=== PATIENT | male | born 1995 | race American Indian/Alaskan Native ===

== ENCOUNTER 2021-01-05 12:30 | Emergency (ER) | payer SELFPAY ==
--- NOTE | 2021-01-05 12:48 | Event Note ---
ED Screening Note ED Screening Note: R ANKLE PAIN This initial assessment/diagnostic orders/clinical plan/treatment(s) is/are subject to change based on patients health status, clinical progression and re- assessment by fellow clinical providers in the ED. Further treatment and workup at subsequent clinical providers discretion. Patient/guardian urged not to elope from the ED as their condition may be serious if not clinically assessed and managed. Initial orders include: XR
[2021-01-05 12:52] VITALS: BP 136/73
--- NOTE | 2021-01-05 13:12 | Emergency Department Report ---
ED Lower Extremity HPI - General Chief Complaint: Extremity Injury, Lower Stated Complaint: RT ANKLE Time Seen by Provider: 01/05/21 12:42 Source: patient Mode of arrival: Ambulatory Limitations: No Limitations - History of Present Illness Initial Comments: 25 yo AA male comes to ER with right ankle pain. Does not recall any trauma. Swelling noted. 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 Complaint: ankle injury -: Sudden, hour(s) Injury: Ankle: Right Type of Injury: unknown Place: home Severity: moderate Improves With: nothing Worsens With: movement - Related Data Allergies Allergy/AdvReac Type Severity Reaction Status Date / Time No Known Allergies Allergy Unverified 01/05/21 12:48 ED Review of Systems ROS: Stated complaint: RT ANKLE Other details as noted in HPI Comment: All other systems reviewed and negative ED Past Medical Hx - Past Medical History Previous Medical History?: No - Surgical History Past Surgical History?: No - Family History Family history: no significant - Social History Smoking Status: Never Smoker Substance Use Type: Marijuana ED Physical Exam - General Limitations: No Limitations General appearance: alert, in no apparent distress - Head Head exam: Present: atraumatic, normocephalic - Eye Eye exam: Present: normal appearance - ENT ENT exam: Present: mucous membranes moist - Neck Neck exam: Present: normal inspection - Respiratory Respiratory exam: Present: normal lung sounds bilaterally. Absent: respiratory distress - Cardiovascular Cardiovascular Exam: Present: regular rate, normal rhythm. Absent: systolic murmur, diastolic murmur, rubs, gallop - GI/Abdominal GI/Abdominal exam: Present: soft, normal bowel sounds - Rectal Rectal exam: Present: deferred - Extremities Exam Extremities exam: Present: normal inspection - Expanded Lower Extremity Exam Right Knee exam: Present: normal inspection Lower Leg exam: Present: normal inspection Ankle exam: Present: full ROM, swelling (lab mal). Absent: tenderness, abrasion, laceration, ecchymosis, deformity, crepidus, dislocation, erythema Foot/Toe exam: Present: normal inspection - Back Exam Back exam: Present: normal inspection - Neurological Exam Neurological exam: Present: alert, oriented X3 - Psychiatric Psychiatric exam: Present: normal affect, normal mood - Skin Skin exam: Present: warm, dry, intact, normal color. Absent: rash ED Course Vital Signs 01/05/21 12:49 Temperature 97.7 F Pulse Rate 133 H Respiratory 18 Rate Blood Pressure 136/73 O2 Sat by Pulse 97 Oximetry - Reevaluation(s) Reevaluation #1: 01/05/21 13:28 hr on exam 90 ED Lower Extremity MDM - Radiology Data Radiology results: report reviewed, image reviewed neg - Medical Decision Making neg xray oscar/crutches dc home with dc poc including ortho follow up pt verbalizes understanding of plan of care Vital Signs 01/05/21 12:49 Temperature 97.7 F Pulse Rate 133 H Respiratory 18 Rate Blood Pressure 136/73 O2 Sat by Pulse 97 Oximetry HR 90 at rest on final provider eval - Differential Diagnosis ro fx Critical care attestation.: If time is entered above; I have spent that time in minutes in the direct care of this critically ill patient, excluding procedure time. ED Disposition Clinical Impression: Ankle sprain Qualifiers: Encounter type: initial encounter Involved ligament of ankle: unspecified ligament Laterality: right Qualified Code(s): S93.401A - Sprain of unspecified ligament of right ankle, initial encounter Disposition: DC-01 TO HOME OR SELFCARE Is pt being admited?: No Does the pt Need Aspirin: No Condition: Stable Instructions: Ankle Sprain Additional Instructions: oscar and crutches for 24 hours for comfort motrin or tylenol over the counter for pain rest/ice/elevate follow up with ortho next week referral below Referrals: RAMIN KOROMA MD [Staff Physician] - 3-5 Days Forms: Work/School Release Form(ED) Time of Disposition: 13:12
--- NOTE | 2021-01-05 13:25 | XRay Report ---
RIGHT ANKLE 3 VIEW(S) INDICATION / CLINICAL INFORMATION: Right ankle pain COMPARISON: None available. FINDINGS: BONES / JOINT(S): No acute fracture or subluxation. No significant arthritis. SOFT TISSUES: No significant abnormality. ADDITIONAL FINDINGS: None. IMPRESSION: No acute osseous abnormality. Signer Name: Benny Ferrera MD Signed: 01/05/2021 1:21 PM Workstation Name: [id number]
[2021-01-05] MEDS ORDERED: IBUPROFEN 800 MG TAB PO ONE (13:29)
== END 2021-01-05 14:04 | disposition home or self-care (01) ==
LOC: ED 12:30
DX: S93.401A Sprain of unspecified ligament of right ankle, initial encounter (principal); Z79.899 Other long term (current) drug therapy; Y93.89 Activity, other specified; Y92.89 Other specified places as the place of occurrence of the external cause; Y99.8 Other external cause status
CPT/HCPCS: 99283